=== PATIENT | male | born 1995 | race Two or more races ===

== ENCOUNTER 2024-12-16 13:49 | Emergency (ER) | payer MEDICAID, SELFPAY ==
[2024-12-16 13:57] VITALS: BP 120/65; PULSE 88; RESP 16; TEMP 36.7; O2SAT 97
--- NOTE | 2024-12-16 14:08 | XR_ITS ---
Examination: CT brain head without contrast. 2-D sagittal coronal reconstructions Date and time of exam:December 16, 2024 1446 hrs. Indications: Injury to top of the head today scalp bleeding head pain CTDI: vol (mGy):50 5. DLP: (mGycm):1257 Technique: Multiple CT axial sections of the brain have been obtained, 5 mm slice thickness. Contrast has not been administered. 2-D sagittal, coronal reconstructions have been obtained Low dose protocols were performed. One or more of the following dose reduction techniques were used; automated exposure control, adjustment of the mA and/or KV according to patient size, use of iterative reconstruction technique. Findings: No significant ventricular enlargement. Intra-axial or extra-axial hemorrhage density is not seen. No mass effect or midline shift Basal cisterns are not remarkable. Fourth ventricle is midline. Cranial vault intact. Impression: Negative for acute hemorrhage, mass effect or midline shift
--- NOTE | 2024-12-16 14:09 | PD.EDWOUND ---
ED Wound/Laceration-RME/HPI General Chief Complaint: Wound/Laceration Stated Complaint: L) TOP OF HEAD; HIT HEAD ON BOAT DOING BACK FLIP Time Seen by Provider: 12/16/24 13:58 Source: patient Arrival date/time: 12/16/24 13:49 29-year-old male with no known medical history presents to the emergency room with a chief complaint of a laceration to the center of his scalp after doing a back flip while on a boat and hitting his head. Patient states he is nauseous and has had episodes of dizziness. Mode of arrival: ambulatory Limitations: no limitations Related Data Allergies Allergy/AdvReac Type Severity Reaction Status Date / Time No Known Allergies Allergy Verified 12/16/24 13:53 Review of Systems Review of Systems Systems Reviewed: All systems reviewed, normal except as documented Constitutional Constitutional: Reports system reviewed and no additional complaints, except as documented, Denies fatigue, Denies fever(s), Denies headache(s) and Denies weakness Eyes Eyes: Reports system reviewed and no additional complaints, except as documented, Denies blurry vision and Denies change in vision ENT Ears, Nose, Mouth, and Throat: Reports system reviewed and no additional complaints, except as documented, Denies otalgia, Denies headache(s), Denies nasal congestion, Denies throat swelling and Denies vertigo Cardiovascular Cardiovascular: Reports system reviewed and no additional complaints, except as documented, Denies chest pain, Denies dyspnea and Denies dyspnea on exertion Respiratory Respiratory: Reports system reviewed and no additional complaints, except as documented, Denies chest congestion, Denies cough, Denies dyspnea, Denies dyspnea on exertion and Denies wheezing Gastrointestinal Gastrointestinal: Reports system reviewed and no additional complaints, except as documented, Denies abdominal pain, Denies cramping, Denies nausea and Denies vomiting Genitourinary Genitourinary: Reports system reviewed and no additional complaints, except as documented, Denies dysuria and Denies hematuria Musculoskeletal Musculoskeletal: Reports system reviewed and no additional complaints, except as documented and Denies back pain Integumentary/Breasts Skin/Breast: Reports system reviewed and no additional complaints, except as documented and Reports wounds Neurologic Neurologic: Reports system reviewed and no additional complaints, except as documented, Denies confusion, Denies headache(s), Denies lack of coordination, Denies vertigo and Denies weakness Psychiatric Psychiatric: Reports system reviewed and no additional complaints, except as documented, Denies anxiety, Denies confusion, Denies depression, Denies paranoia, Denies suicidal ideation and Denies tactile hallucinations Endocrine Endocrine: Reports system reviewed and no additional complaints, except as documented and Denies fatigue Hematologic/Lymphatic Hematologic/Lymphatic: Reports system reviewed and no additional complaints, except as documented and Denies lymphadenopathy Allergic/Immunologic Allergic/Immunologic: Reports system reviewed and no additional complaints, except as documented, Denies throat swelling, Denies urticaria and Denies wheezing Past Medical History Social History SMOKING STATUS: Former smoker ED Exam General Limitations: Present no limitations General appearance: Present alert and in no apparent distress Head Head exam: Present atraumatic and normocephalic Expanded Head Exam Head exam physical: Present laceration; Absent abrasion, contusion, hematoma, raccoon eyes, Zhao's sign, tenderness of temporal artery, CSF rhinorrhea or CSF otorrhea Head image:  1. 2 cm laceration to the center of his scalp Eye Eye exam: Present normal appearance, PERRL and EOMI ENT ENT exam: Present normal exam, normal oropharynx and mucous membranes moist Neck Neck exam: Present normal inspection, full ROM and trachea midline Chest Chest inspection: Present normal inspection and symmetric chest wall rise Respiratory Respiratory exam: Present normal lung sounds bilaterally Cardiovascular Cardiovascular exam: Present regular rate, normal rhythm and normal heart sounds Abdominal Exam Abdominal exam: Present soft and normal bowel sounds Extremities Exam Extremities exam: Present normal inspection and full ROM Back Exam Back exam: Present normal inspection and full ROM Neurological Exam Neurological exam: Present alert, oriented X3 and CN II-XII intact Psychiatric Psychiatric exam: Present normal affect and normal mood Skin Skin exam: Present warm, dry, intact and normal color Course Quality Measures none Orders Category Date Time Status Stapler to Beside ONCE Care 12/16/24 14:08 Active Wound Care X1 Care 12/16/24 14:[address] head/brain wo con Stat Exams 12/16/24 14:08 Completed Vital Signs Vital signs: Vital Signs Temperature 98.0 F 12/16/24 13:57 Pulse Rate 88 12/16/24 13:57 Respiratory Rate 16 12/16/24 13:57 Blood Pressure 120/65 12/16/24 13:57 Pulse Oximetry (%) 97 12/16/24 13:57 Oxygen Delivery Method Room Air 05/11/25 13:57 O2 saturation 97% within normal limits Procedures -ED Laceration Laceration 1: Site: scalp Size (cm): 7 Description: linear, irregular and clean Depth: simple, single layer Pre-repair: irrigated extensively Skin layer closed with: other (Buford) Number of sutures: 8 Technique: simple, interrupted Wound / Laceration MDM Narrative MDM Narrative:: 29-year-old male with no known medical history presents to the emergency room with a chief complaint of a laceration to the center of his scalp after doing a back flip while on a boat and hitting his head. Patient states he is nauseous and has had episodes of dizziness. Patient is hemodynamically stable and in no apparent distress. Patient is a GCS of 15 alert and oriented x 3 pupils are PERRLA EOMs are intact Patient has a 2 cm laceration to the scalp. The wound was cleaned and irrigated. 3 elmo were used to close and approximate the wound. CT of the head and brain was completed and was negative for any acute hemorrhage mass effect or midline shift Patient was discharged and educated to follow-up with primary care provider in the next 24 to 48 hours and return to the emergency room for any evidence of worsening signs or symptoms Patient data External records reviewed:: [facility] previous records Clinical information provided by:: patient Social determinants that could affect healthcare access:: none Patient has the following chronic illnesses:: No chronic illness How is presenting disease/condition affected by chronic disease/condition?: no chronic disease Evaluation data The following diagnostics were reviewed and interpreted by me:: lab results and radiology exam(s) Lab and/or radiology exams considered but not ordered:: Labs radiology exams considered in order Interpretation Summary: CT head and brain-no acute hemorrhage mass effect or midline shift Medications / Prescriptions Medications or Prescriptions considered but not ordered:: No medication given Medication administrations:: No medication given Consultations Consultation(s) initiated? (list below): No Diagnosis Wound Differential Diagnosis: laceration and abrasion Most likely diagnosis given after review of the tests above:: Laceration Admission Indicated Admission indicated?: not indicated Admission Request Was there a request for admission?: No Disposition Plan Disposition Plan: Discharge Discharge Attestation Discharge Attestation: The patient and all family members were given an opportunity to ask questions and understood the discharge instructions. Discharge instructions specifically effects, indications for sooner follow up or return to the emergency department, and the expected course of current diagnosis. Patient condition: Stable Discharge Plan Plan Patient Disposition: HOME (Self Care) Discharge Disposition comment: Stable Prescriptions/Referrals Referrals: No Primary/Family,Physician [Primary Care Provider] - In 1 week Problem List Clinical Impression: Laceration Patient/Caregiver Discharge Instructions Additional Instructions: Please follow-up with your primary care provider in the next 24 to 48 hours. The laceration on your scalp was closed with elmo. Please keep the area clean and dry for the next 24 hours after that you can clean it with soap and water. In 7 to 10 days you can return for suture removal. For any evidence of worsening signs or symptoms please return to the emergency room immediately Print Language: Kazakh Stand Alone Forms: Dawna Award Info., Patient Portal Info Letter PA/LEW Supervising Physician JA/LEW Supervising Physician: Dr. Mcgowan
== END 2024-12-16 17:02 | disposition home or self-care (01) ==
PROVIDERS: Emergency Provider Family Medicine
DX: S01.01XA Laceration without foreign body of scalp, initial encounter (principal); W22.8XXA Striking against or struck by other objects, initial encounter
CPT/HCPCS: 12002; 70450; 99284